=== PATIENT | male | born 1975 ===

== ENCOUNTER → 2020-11-14 | Outpatient (CLI) | payer OTHER, BC ==
[2020-11-14 09:30] LABS: BASO # 0.02 (0.02-0.10); EOS # 0.02 (0.04-0.40); EOS % 0.4 % (0.0-4.0); HEMATOCRIT 47.8 % (42.0-52.0); HEMOGLOBIN 16.2 g/dL (13.5-18.0); LYMPH# 1.41 (1.50-4.00); MEAN CELL VOLUME 90 fl (78-100); MEAN CORPUSCULAR HEMOGLOBIN 31 pg (27-31); MEAN CORPUSCULAR HGB CONC 34 g/dL (33-37); MEAN PLATELET VOLUME 10.1 fl (7.4-10.4); MONO # 0.45 (0.20-0.80); NEU # 3.37 (1.40-6.50); PLATELET COUNT 220 K/mm3 (130-400); RED BLOOD COUNT 5.29 M/mm3 (4.20-5.60); RED CELL DISTRIBUTION WIDTH 12.9 % (11.5-14.5); WHITE BLOOD COUNT 5.3 K/mm3 (4.8-10.8)
[2020-11-14 09:49] LABS: ALBUMIN 3.8 g/dL (3.5-5.0); POTASSIUM 4.5 mmol/L (3.5-5.1)
[2020-11-14 09:50] LABS: CALCIUM 8.9 mg/dL (8.3-10.5)
[2020-11-14 09:52] LABS: TOTAL PROTEIN 6.8 g/dL (6.4-8.3)
[2020-11-14 09:54] LABS: TOTAL BILIRUBIN 0.5 mg/dL (0.2-1.2)
== END ==
LOC: LAB 09:08
PROVIDERS: Physician Assistant
DX: Z00.00 Encounter for general adult medical examination without abnormal findings (principal); Z13.220 Encounter for screening for lipoid disorders; Z13.29 Encounter for screening for other suspected endocrine disorder; K90.9 Intestinal malabsorption, unspecified

== ENCOUNTER → 2020-11-17 | Outpatient (CLI) | payer OTHER, BC | LOC: RAD 08:20 | DX: R76.11 Nonspecific reaction to tuberculin skin test without active tuberculosis (principal) ==